=== PATIENT | female | born 2000 | race Caucasian/White ===

== ENCOUNTER 2023-11-07 15:47 | Emergency (ER) | payer SELFPAY ==
--- NOTE | ~2023-11-07 | XR_ITS ---
EXAMINATION: XR chest 2V DATE: 11/07/2023 17:51 INDICATION: Chest pain. Palpitations. TECHNIQUE: Frontal and lateral views of the chest were obtained. COMPARISON: None. FINDINGS: There is no pneumonia, pleural effusion, or pneumothorax. The heart size is normal. IMPRESSION: 1. No acute cardiopulmonary disease. Reviewed, dictated and finalized at location A.
--- NOTE | 2023-11-07 15:51 | ECG_ITS ---
Test Date: 2023-11-07 16:02:25 Measurements Intervals [place] Rate: 76 P: 29 VA: 119 QRS: 69 QRSD: 85 T: 49 QT: 344 QTc: 389 Interpretive Statements SINUS RHYTHM WITH SHORT VA INTERVAL INCOMPLETE RIGHT BUNDLE BRANCH BLOCK NONSPECIFIC ST AND T-WAVE ABNORMALITY No previous ECG available for comparison Electronically Signed On 11-08-2023 15:30:37 CDT by Unruly Childers M.D.
[2023-11-07 15:58] VITALS: BP 136/108; PULSE 122; RESP 15; TEMP 36.6; O2SAT 99
--- NOTE | 2023-11-07 16:13 | ED.ARRPALP ---
HPI - Arrhythmia/Palpitations General Chief Complaint: Arrhythmia/Palpitations Stated Complaint: INT CHEST TIGHT/TACHYCARDIA [id number] Time Seen by Provider: 11/07/23 16:14 Focused HPI: This is a 23 year old female that presents to the ER for palpitations. Reports she feels like her heart is racing and has associated chest tightness. Reports history of anxiety. Denies shortness of breath. GENERAL: Well-appearing, well-nourished, and in no acute distress. HEAD: Normocephalic, atraumatic. CHEST: Clear to auscultation. ?No respiratory distress. HEART: Regular rhythm, tachycardic NEURO: ?Alert and oriented x3. Patient screened in triage and initial orders placed.? ?Additional care and disposition to be based upon?diagnostic testing and treatment. Related Data Allergies Allergy/AdvReac Type Severity Reaction Status Date / Time amoxicillin Allergy Unknown Verified 11/07/23 16:04 Course Vital Signs Vital signs: Vital Signs Temperature 98 F 11/07/23 15:58 Pulse Rate 122 H 11/07/23 15:58 Respiratory Rate 15 11/07/23 15:58 Blood Pressure 136/108 H 11/07/23 15:58 Pulse Oximetry 99 11/07/23 15:58 Oxygen Delivery Room Air 11/07/23 15:58 Temperature 98 F 11/07/23 15:58 Pulse Rate 122 H 11/07/23 15:58 Respiratory Rate 15 11/07/23 15:58 Blood Pressure 136/108 H 11/07/23 15:58 Pulse Oximetry 99 11/07/23 15:58 Oxygen Delivery Room Air 11/07/23 15:58 MDM - Arrhythmia/Palpitations MDM Narrative Medical decision making narrative: Patient eloped after being seen by myself and before any further evaluation or management Lab Data 11/07/23 16:17 11/07/23 16:17 Labs: Lab Results 11/07/23 Range/Units 16:17 WBC 7.1 (4.5-10.0) K/mm3 RBC 5.15 (4.2-5.4) M/mm3 Hgb 15.4 H (12.0-15.0) g/dL Hct 44.5 (37.0-47.0) % MCV 86.4 (80-100) fl MCH 29.9 (26-34) pg MCHC 34.6 (32-36) g/dl RDW 12.8 (11.5-14.5) % Plt Count 206 (150-375) k/mm3 MPV 11.3 H (7.4-10.4) fl Immature Gran % (Auto) 0.1 (0-0.5) % Neut % (Auto) 58.0 (45.5-73.1) % Lymph % (Auto) 33.1 (18.3-44.2) % [place] % (Auto) 6.7 (2.6-8.5) % Eos % (Auto) 1.4 (0-4.4) % Baso % (Auto) 0.7 (0.2-1.2) % Lymph # (Auto) 2.36 (0.9-3.2) K/mm3 [place] # (Auto) 0.5 (0.1-0.6) K/mm3 Eos # (Auto) 0.1 (0-0.3) K/mm3 Baso # (Auto) 0.1 (0.0-0.1) K/mm3 Abs Immat Gran (auto) 0.01 (0.00-0.031) K/mm3 Absolute Neuts (auto) 4.1 (1.3-6.7) K/mm3 Absolute Nucleated RBC 0.000 (0.0-0.012) K/mm3 Nucleated RBC % 0.0 (0.0-0.2) % PT 14.3 (11.1-14.7) Seconds INR 1.1 APTT 30.6 (22.3-36.8) Seconds Sodium 140 (137-145) mmol/L Potassium 4.1 (3.4-5.0) mmol/L Chloride 106 (98-107) mmol/L Carbon Dioxide 21 L (22-30) mmol/L Anion Gap 13 H (4-12) mmol/L BUN 7 (7-17) mg/dL Creatinine 0.70 (0.7-1.0) mg/dL Estim Creat Clear Calc 103 ml/min Estimated GFR > 60 (59 - ) Glucose 88 (65-110) mg/dL Calcium 9.3 (8.4-10.2) mg/dL Total Bilirubin 2.0 H (0.2-1.3) mg/dL AST 22 (14-36) U/L ALT 13 (6-35) U/L Alkaline Phosphatase 45 (38-126) U/L Troponin I < 0.012 (0.000-0.034) ng/mL Total Protein 8.0 (6.3-8.2) g/dL Albumin 4.8 (3.5-5.1) g/dL Lipase 52 (23-300) U/L Imaging Data Radiologist's impression: ITS Impressions Chest X-Ray 11/07/23 17:52 IMPRESSION: 1. No acute cardiopulmonary disease. ECG Data EKG #1: ECG completion date: 11/07/23 EKG Interpretation: normal rate, sinus rhythm, no ST changes and normal QT Discharge Plan Discharge Clinical Impression: Palpitations Patient Disposition: Elopement After Seen by Prov Condition: Stable Follow-up/Referrals: PHYSICIAN,MUSIC COPYIST [Primary Care Provider] -
[2023-11-07 16:29] LABS: Basophils Absolute Auto 0.1 K/mm3 (0.0-0.1); Basophils Percent Auto 0.7 % (0.2-1.2); Eosinophils Absolute Auto 0.1 K/mm3 (0-0.3); Eosinophils Percent Auto 1.4 % (0-4.4); Hematocrit 44.5 % (37.0-47.0); Hemoglobin 15.4 g/dL (12.0-15.0); Immature Granulocyte Absolute 0.01 K/mm3 (0.00-0.031); Immature Granulocyte Percent A 0.1 % (0-0.5); Lymphocytes Absolute Auto 2.36 K/mm3 (0.9-3.2); Lymphocytes Percent Auto 33.1 % (18.3-44.2); Mean Corpuscular HGB Conc 34.6 g/dl (32-36); Mean Corpuscular Hemoglobin 29.9 pg (26-34); Mean Corpuscular Volume 86.4 fl (80-100); Mean Platelet Volume 11.3 fl (7.4-10.4); Monocytes Absolute Auto 0.5 K/mm3 (0.1-0.6); Monocytes Percent Auto 6.7 % (2.6-8.5); Neutrophils Absolute Auto 4.1 K/mm3 (1.3-6.7); Platelet Count Result 206 k/mm3 (150-375); Red Blood Count 5.15 M/mm3 (4.2-5.4); Red Cell Distribution Width 12.8 % (11.5-14.5); White Blood Count 7.1 K/mm3 (4.5-10.0)
[2023-11-07 16:33] LABS: INR 1.1; Prothrombin Time 14.3 Seconds (11.1-14.7)
[2023-11-07 16:35] LABS: Partial Thromboplastin Time 30.6 Seconds (22.3-36.8)
[2023-11-07 17:42] LABS: Alanine Aminotransferase 13 U/L (6-35); Albumin Level 4.8 g/dL (3.5-5.1); Alkaline Phosphatase 45 U/L (38-126); Anion Gap 13 mmol/L (4-12); Aspartate Amino Transferase 22 U/L (14-36); Blood Urea Nitrogen 7 mg/dL (7-17); Calcium 9.3 mg/dL (8.4-10.2); Carbon Dioxide 21 mmol/L (22-30); Chloride 106 mmol/L (98-107); Estimated CRCL calculation 103 ml/min; Estimated Glomerular Filt Rate > 60; Glucose 88 mg/dL (65-110); Lipase 52 U/L (23-300); Potassium 4.1 mmol/L (3.4-5.0); Sodium 140 mmol/L (137-145)
[2023-11-07 17:53] LABS: Troponin I < 0.012 ng/mL (0.000-0.034)
--- NOTE | 2023-11-07 19:34 | PC.NURSE ---
pt to intake desk and verbalized that she was leaving. pt ambulatory with steady gait to exit. no distress noted.
== END 2023-11-07 19:34 | disposition left against medical advice (07) ==
LOC: ANHED 20:11
PROVIDERS: Emergency Provider Physician Assistant
DX: R00.2 Palpitations (principal)
CPT/HCPCS: 36415; 71046; 80053; 83690; 84484; 85025; 85610; 85730; 93005; 99284